=== PATIENT | female | born 1980 | race Caucasian/White ===

== ENCOUNTER 2018-03-11 19:02 | Inpatient (IN) | payer OTHER ==
--- NOTE | 2018-03-11 20:36 | OBADHP ---
Datetime: 03/11/2018 20:30 Admit Comment, IP Provider: Patient is a 38-year-old 2 para 0 estimated gestational age 39 w eeks submitted due date 03/18/2018. Patient presents to labor and delivery for induction of labor sec ondary to decreased amniotic fluid. Patient reports good movement no vaginal bleeding or leakag e of fluid. Patient's care unremarkable. Past medical history none Past surgical history none No known drug allergies Social history denies alcohol tobacco use Review of systems patient denies headache chest pain shortness breath palpitations nausea vomiting diarrhea vaginal bleeding dysuria heat or cold intolerance easy bruisability musculoskeletal or neur ological complaints Vital signs stable afebrile Physical exam see notes Intrauterine at 39 weeks oligohydramnios uterine contractions Adequate pelvis, vertex presentation, estimated weight 7-1/2-8 pounds Admit, routine labs Ripen cervix was Cervidil Plan of care was discussed with patient and partner whom agree with plan of care Pelvic Type - PN: Adequate Extremities - PN: Normal Abdomen - PN: Normal Back - PN: Normal Breast - PN: Not Done Lungs - PN: Normal Heart - PN: Normal Thyroid - PN: Normal Neurologic - PN: Normal HEENT - PN: Normal General - PN: Normal Weight - Estimated: 71/2-8 Presentation-Admit: Vertex FHR - Baseline A Provider: 145 Gestation - Est Wks by US: 39.0 Pool Provider: Negative Vital Signs Provider: Reviewed IP Chief Complaint: Uterine contractions NICHD Variability Prov Fetus A: Moderate 6-25bpm NICHD Accel Fetus A IP Provider: [id number] NICHD Decel Fetus A IP Provider: None Dilatation, Provider: 1 Effacement, Provider: 50 Station, Provider: -2 Genitourinary Exam: Normal DTRs - PN: Normal IP Adm Impression: Term, intrauterine ; No Active Labor IP Admit Plan: Admit to unit
[2018-03-11 21:03] VITALS: BMI 36.9
[2018-03-11 21:50] LABS: BASO # 0.1 K/uL (0.0-0.2); BASO % 0.6 % (0.0-2.0); EOS # 0.1 K/uL (0.0-0.7); EOS % 1.2 % (0.0-4.0); HEMOGLOBIN 12.1 g/dL (12.0-16.0); LYMPH # 2.2 K/uL (1.0-4.3); LYMPH % 25.7 % (20.0-40.0); MEAN CELL VOLUME 87.5 fl (81.0-99.0); MEAN CORPUSCULAR HEMOGLOBIN 30.6 pg (27.0-31.0); MEAN PLATELET VOLUME 8.3 fl (7.2-11.7); MONO # 0.6 K/uL (0.0-0.8); MONO % 6.8 % (0.0-10.0); NEUT # 5.5 K/uL (1.8-7.0); NEUT % 65.7 % (50.0-75.0); RBC 3.96 Mil/uL (3.80-5.20); RED CELL DISTRIBUTION WIDTH 13.4 % (11.5-14.5); WHITE BLOOD COUNT 8.4 K/uL (4.8-10.8)
[2018-03-12] MEDS: Levothyroxine 112 MCG TAB PO SCH (08:35)
[2018-03-12] MEDS ORDERED: Levothyroxine 112 MCG TAB PO SCH (09:00)
[2018-03-13] MEDS ORDERED: Oxytocin 30 units/LR 500ML 30 UNITS/500 ML BAG IV ONE (00:46)
--- NOTE | 2018-03-13 01:07 | OBPN ---
Datetime: 03/13/2018 01:06 IP Procedures: Sterile Vag Exam IP Progress Plan: Continue present management; Augmentation Vital Signs Provider: Reviewed; Within Normal Limits Dilatation, Provider: 1 Effacement, Provider: 80 Station, Provider: -1 Datetime: 03/12/2018 11:04 Contraction Comments Provider: q3-4min FHR - Baseline A Provider: 120s IP Progress Note Comment: Late entry note. Patient comfortable without complaints. Plan to give by [facility] Cytotec for cervical ripening. Discussed plan with patient all patient questions answered. NICHD Accel Fetus A IP Provider: 15X15 FHR Category Provider Fetus A: Category I NICHD Variability Prov Fetus A: Moderate 6-25bpm NICHD Decel Fetus A IP Provider: None Datetime: 03/12/2018 09:00 IP Informed Consent Obtain: Induction of Labor Gestation - Est Wks by US: 39.2 Datetime: 03/11/2018 20:30 Pool Provider: Negative Weight - Estimated: 71/2-8 Presentation-Admit: Vertex
--- NOTE | 2018-03-13 01:09 | OBPN ---
Datetime: 03/13/2018 01:06 FHR - Baseline A Provider: 120s IP Progress Note Comment: heart tracing category 1. Plan to start Pitocin augmentation. Discus sed plan with patient and all patient questions answered. NICHD Accel Fetus A IP Provider: 15X15 FHR Category Provider Fetus A: Category I NICHD Variability Prov Fetus A: Moderate 6-25bpm NICHD Decel Fetus A IP Provider: None
[2018-03-13] MEDS ORDERED: Lactated Ringer's 1,000 ML IV SCH (01:30)
[2018-03-13] MEDS: Levothyroxine 112 MCG TAB PO SCH (07:33)
[2018-03-13] MEDS ORDERED: Fentanyl/Bupivacaine HCl 250 ML EPI ONE (09:17)
--- NOTE | 2018-03-13 10:38 | OBPN ---
Datetime: 03/13/2018 09:24 IP Progress Impression: Normal progression of labor IP Informed Consent Obtain: Vaginal Delivery IP Procedures: Sterile Vag Exam IP Progress Plan: Continue present management Membranes, Provider: Ruptured Contraction Comments Provider: q 2 mins FHR - Baseline A Provider: 125 IP Progress Note Comment: Patient evaluated, uncomfterable VE=4/90/0 TER=475 mod harvey, +accels, no decels TOCO = ctxing q 2 mins A/P 1. Patient requesting epidural 2. CEFM and TOCO Vital Signs Provider: Reviewed; Within Normal Limits NICHD Accel Fetus A IP Provider: 15X15 NICHD Variability Prov Fetus A: Moderate 6-25bpm Dilatation, Provider: 4 Effacement, Provider: 90 Station, Provider: 0 NICHD Decel Fetus A IP Provider: Early
--- NOTE | 2018-03-13 19:31 | OBPN ---
Datetime: 03/13/2018 19:23 IP Progress Impression: Arrest of dilatation/descent IP Informed Consent Obtain: Section Delivery Contraction Comments Provider: q 2- 4 mins FHR - Baseline A Provider: 130 IP Progress Note Comment: Patient has been pushing without adequate progress for 4 hours. Multiple p ositions were tried, epidural and no epidural. At this point patient is an arrest of labor, advise to proceed with for delivery. Patient verablized understanding and agreed with proceeding wit h . Risks/benefits including risk of bleeding, infection, damage to surrounding organs such as bowel bladder, ureter, uterus. ANcef to be given pre-operatively. Will proceed to OR Vital Signs Provider: Reviewed; Within Normal Limits NICHD Variability Prov Fetus A: Moderate 6-25bpm Dilatation, Provider: 10 Effacement, Provider: 100 Station, Provider: 2 NICHD Decel Fetus A IP Provider: Early
[2018-03-13] MEDS ORDERED: OXYTOCIN/0.9 % NS 20 UNIT/1,000 ML BAG IV ONE (19:41)
[2018-03-13] MEDS ORDERED: ceFAZolin IV 2 gm in Dextrose 2 GM/50 ML BAG IVPB SCH (19:45)
[2018-03-13] MEDS ORDERED: Oxytocin 30 UNIT 30 UNITS/500 ML BAG IV ONE (19:47)
[2018-03-13] MEDS ORDERED: Lidocaine 2% MPF (5 ml) Inj ONE (19:56)
[2018-03-13] MEDS ORDERED: OXYTOCIN/0.9 % NS 20 UNIT/1,000 ML BAG IV SCH (20:00)
[2018-03-13] MEDS ORDERED: ePHEDrine 50 mg/ml Inj ONE (20:07)
[2018-03-13] MEDS ORDERED: Morphine 1 mg/ml preservative-free Inj(Duramorph) ONE (20:08)
[2018-03-13] MEDS ORDERED: Azithromycin 500 MG in Sodium Chloride 0.9% 250 ML IVPB STA (20:30)
[2018-03-13] MEDS ORDERED: DiphenhydrAMINE 50 mg/ml Inj IVP PRN (22:31)
[2018-03-13] MEDS ORDERED: Bisacodyl 5mg EC Tab PO PRN (23:29)
[2018-03-13] MEDS ORDERED: Oxycodone/Acetaminophen 5/325 mg Tab PO PRN ×2 (23:29)
--- NOTE | 2018-03-13 23:34 | OBDS ---
MATERNAL INFORMATION Provider Comments: Surgeon: Dr. Rose Supervisor Particleboard: Dr. Villarreal OB fellow, Dr. Juarez PGY 1 PRe-op: Arrest of second stage labor Surgery: primary Post-op: Same Findings: live male , vertex, 8lbs 6oz, 7/9, clear fluid, grossly nml tubes, ovaries, placen ta, uterus EBL: 950mL Anesthesia: Epidural by Dr. Roland ALVAREZ in: 2000mL UO: 250mL bloody Complications: none Condition: stable Pathology: cord blood, cord ph LABOR SUMMARY EDC: 03/17/2018 00:00 No. Babies in Womb: 1 Attempted: No LABOR INFORMATION Reason for Induction: Polyhydramnios Cervical Ripening Agents: Cytotec @ (Annotations: 1st dose of cytotec 50mcg given PO.) Oxytocin: N/A Group B Beta Strep: Negative Steroids Given: None Reason Steroids Not Administered: Not Applicable MEMBRANES Membranes Rupture Method: Spontaneous Rupture of Membranes: 03/13/2018 02:50 Amniotic Fluid Color: Clear Amniotic Fluid Amount: Small Amniotic Fluid Odor: Normal BABY A INFORMATION Born in Route : No : N/A PRESENTATION/POSITION BABY A Presentation: Cephalic INFORMATION BABY A Gestational Age at Delivery: 39.0 Gestational Status: Term
[2018-03-14] MEDS ORDERED: Bisacodyl 5mg EC Tab PO PRN (02:50)
[2018-03-14] MEDS ORDERED: Oxycodone/Acetaminophen 5/325 mg Tab PO PRN (02:50)
[2018-03-14] MEDS ORDERED: DiphenhydrAMINE 50 mg/ml Inj IVP PRN (02:50)
[2018-03-14] MEDS: Lactated Ringer's 1,000 ML IV SCH ×2 (03:43→11:25)
[2018-03-14] MEDS ORDERED: Simethicone 80 mg Chewtab PO SCH (04:00)
[2018-03-14] MEDS: Levothyroxine 112 MCG TAB PO SCH (06:29)
[2018-03-14 08:27] LABS: MEAN CELL VOLUME 87.7 fl (81.0-99.0); MEAN CORPUSCULAR HEMOGLOBIN 30.3 pg (27.0-31.0); MEAN CORPUSCULAR HGB CONC 34.6 g/dL (33.0-37.0); RBC 3.63 Mil/uL (3.80-5.20); RED CELL DISTRIBUTION WIDTH 13.5 % (11.5-14.5); WHITE BLOOD COUNT 15.2 K/uL (4.8-10.8)
[2018-03-14] MEDS ORDERED: Multivitamin With Minerals Tab PO SCH (09:00)
[2018-03-14] MEDS: Oxycodone/Acetaminophen 5/325 mg Tab PO PRN (11:21)
[2018-03-14] MEDS: Simethicone 80 mg Chewtab PO SCH ×4 (11:23→22:10)
[2018-03-15] MEDS: Oxycodone/Acetaminophen 5/325 mg Tab PO PRN ×2 (00:19→06:44)
[2018-03-15] MEDS: Simethicone 80 mg Chewtab PO SCH ×4 (03:19→21:26)
[2018-03-15] MEDS: Levothyroxine 112 MCG TAB PO SCH (06:44)
--- NOTE | 2018-03-15 09:02 | OBPPN ---
Datetime: 03/14/2018 08:54 PP Pain Prov: Within normal limits PP Nausea Prov: Denies PP Flatus Prov: Yes PP Breasts Prov: Normal PP Heart Prov: Normal PP Lungs Prov: Normal PP Abdomen/Uterus Prov: Normal PP Lochia Prov: Normal PP Vulva/Perineum Prov: Normal PP CVA Tenderness Prov: Normal PP Extremities Prov: Normal PP C/S Incision Prov: Normal PP Progress Prov: Normal PP Comments Phys Exam Prov: Abdomen soft, nontender, nondistended Uterus firm, below umbilicus Incision clean, dry, intact No deep calf tenderness bilaterally PP Impression Prov: Normal progression PP Plan Prov: Continue present management PP Progress Note Prov: Postoperative day #1 status post , patient recovering well Advance to regular diet Pain control Patient out of bed and ambulating Postoperative CBC Remove Douglas catheter IP PP Procedures: None Vital Signs Provider PP: Reviewed; Within Normal Limits
--- NOTE | 2018-03-15 10:55 | OBPPN ---
Datetime: 03/15/2018 10:47 PP Pain Prov: Within normal limits PP Nausea Prov: Denies PP Flatus Prov: Yes PP Breasts Prov: Normal PP Heart Prov: Normal PP Lungs Prov: Normal PP Abdomen/Uterus Prov: Normal PP Lochia Prov: Normal PP Vulva/Perineum Prov: Normal PP CVA Tenderness Prov: Normal PP Extremities Prov: Normal PP Comments Phys Exam Prov: Fundus firm under umbilicus PP Impression Prov: Normal progression PP Plan Prov: Continue present management PP Progress Note Prov: Patient denies CP, no SOB, no N/V, tolerating PO diet, ambulating/voiding wel l, mild lochia, abdominal pain tolerable with meds, +flatus, no BM A/P POD #2 1. continue postop orders 2. Motrin/prn percocet 3. Encourage ambulation/ IP PP Procedures: None Vital Signs Provider PP: Reviewed; Within Normal Limits
[2018-03-16] MEDS: Levothyroxine 112 MCG TAB PO SCH (06:36)
[2018-03-16] MEDS: Simethicone 80 mg Chewtab PO SCH ×4 (06:36→22:15)
--- NOTE | 2018-03-16 07:34 | OBPPN ---
Datetime: 03/16/2018 07:32 PP Pain Prov: Within normal limits PP Nausea Prov: Denies PP Flatus Prov: Yes PP BM Prov: Yes PP Abdomen/Uterus Prov: Normal PP Lochia Prov: Normal PP Extremities Prov: Normal PP C/S Incision Prov: Normal PP Progress Prov: Normal PP Comments Phys Exam Prov: Incision intact PP Impression Prov: Normal progression PP Plan Prov: Discharge PP Progress Note Prov: POD 3/ sp primary c/s for arrets of second stage, doing well, breast and yovany le feeding Rx 's motrin and percocet given Discharge home Vital Signs Provider PP: Reviewed; Within Normal Limits
--- NOTE | 2018-03-16 07:37 | OBDCSUM ---
Datetime: 03/16/2018 07:34 Discharged to, Provider: Home Follow up at, Provider: Dayan Disch Instr Activity: Normal activity; May Shower Disch Instr Diet: Regular Discharge Instructions, Provider: Routine instructions given Discharge Diagnosis, Provider: Term Delivered Discharge Time: 03/16/2018 07:34 Follow up in weeks, Provider: 1 week Disch Activity Restrictions: No exercising; No lifting; No driving; No sexual activity; Nothing in v agina - [place], tampons, douche
--- NOTE | 2018-03-16 08:37 | OP ---
PROCEDURE DATE: 03/13/18 PREOPERATIVE DIAGNOSES: 1. Arrest of second stage of labor. 2. Term . 3. Oligohydramnios. 4. Obesity. 5. Advanced maternal age. POSTOPERATIVE DIAGNOSES: 1. Arrest of second stage of labor. 2. Term . 3. Oligohydramnios. 4. Obesity. 5. Advanced maternal age. PROCEDURE: Primary low-transverse section. SURGEON: Jeniffer Rose MD. MANAGER UTILIZATION MANAGEMENT: Dr. Villarreal, OB Fellow and Dr. Juarez, PGY-1. FINDINGS: Live male , vertex, 8 pounds 6 ounces, 7 and 9 Apgars, clear fluid. Grossly normal tubes, ovaries, placenta and uterus. ESTIMATED BLOOD LOSS: 950 mL. ANESTHESIA: Epidural. ANESTHESIOLOGIST: Dr. Watkins. IV FLUIDS: 2000 mL URINE OUTPUT: 250 mL bloody. COMPLICATIONS: None. CONDITION: Stable. PATHOLOGY SPECIMEN: Cord blood and cord pH. INDICATION: This is a 38-year-old G1, P0 at 39 plus weeks, who was found to have oligohydramnios on an ultrasound done in the office and was advised to come to the hospital for induction. The patient advanced to fully dilated with the induction and pushed for four hours without adequate descent of the vertex presentation. The patient was advised at that point that she was in arrest of second stage of labor and to proceed with for delivery. The patient verbalized understanding and signed the informed consent. The patient was taken to OR when available. DESCRIPTION OF PROCEDURE: The patient was taken to OR. Ancef was given preoperatively. SCDs were placed bilaterally. The patient was prepped and draped in normal sterile fashion in dorsal supine position with a leftward tilt. Pfannenstiel skin incision was made with a scalpel and carried through the underlying layer of fascia with the scalpel and the Bovie. Fascia was incised in the midline, incision was extended laterally with the Bovie. We used Abdelrahman clamps to tent up the inferior aspect of this incision which we dissected off of the underlying pyramidalis muscles with the Bovie. In a similar fashion, we tented up the superior aspect of this incision, which we dissected off the underlying rectus abdominis muscles with Bovie. Muscles were bluntly at the midline. The peritoneum was entered with the Metzenbaum scissors. The incision was advanced superiorly and inferiorly with good visualization of all underlying organs. A bladder blade was inserted uterine peritoneum was identified, grasped with pickups. The bladder flap was created with the Metzenbaum scissors. The lower uterine segment was incised in the transverse fashion with the scalpel. The uterine cavity was entered. Clear fluid was noted. The was very low down in the pelvis, it took multiple times to delivery the infant in vertex presentation. The uterine incision, muscle incision, and skin incision were all expanded laterally. The delivered atraumatically in vertex presentation followed by shoulders and rest of the atraumatically. Cord was clamped and cut. was handed off to awaiting pediatric team. A segment of cord was sent down to pathology for cord pH to be obtained. Cord blood was collected. Placenta was extracted manually. Uterus exteriorized and cleared off all clots. Uterine incision was repaired with an 0 Vicryl stitch, and a second imbricating layer was done with 0 Monocryl stitch. The hysterotomy site appeared to be hemostatic. The uterus was returned to the abdomen. Gutters were cleared off all clots. The uterine incision was again reinspected and found to be hemostatic. The peritoneum was closed with a 2-0 Monocryl. The muscle edges were reapproximated with 0 Vicryl and then at the midline was reapproximated with the same stitch, the muscle overall appeared to be hemostatic. The fascia was closed with an 0-Vicryl stitch and the subcutaneous fat. Small bleeders were cauterized and it was reapproximated with plain gut suture. Sponge, lap and needle counts were correct x4. The skin was closed with 4-0 Monocryl. The patient was taken to the recovery room in stable condition. No other complications. Jeniffer Rose MD
[2018-03-16] MEDS: Lactated Ringer's 1,000 ML IV SCH (11:00)
[2018-03-17] MEDS: Simethicone 80 mg Chewtab PO SCH (04:00)
[2018-03-17] MEDS: Levothyroxine 112 MCG TAB PO SCH (06:29)
--- NOTE | 2018-03-17 09:33 | OBDCSUM ---
Datetime: 03/17/2018 09:30 Discharged to, Provider: Home Follow up at, Provider: Dayan Disch Instr Activity: Normal activity Disch Instr Diet: Regular Discharge Instructions, Provider: Routine instructions given Discharge Diagnosis, Provider: Term Delivered Follow up in weeks, Provider: 1-2w Disch Referrals: None Contraception discussed, Prov: Yes Disch Activity Restrictions: No lifting; No sexual activity; Nothing in vagina - [place], tampon s, douche
[2018-03-17 22:37] VITALS: BP 122/72; PULSE 86; RESP 20; TEMP 97.7; O2SAT 98
--- NOTE | 2018-03-17 22:59 | OBPPN ---
Datetime: 03/17/2018 09:29 PP Pain Prov: Within normal limits PP Nausea Prov: Denies PP Flatus Prov: Yes PP BM Prov: Yes PP Breasts Prov: Normal PP Heart Prov: Normal PP Lungs Prov: Normal PP Abdomen/Uterus Prov: Normal PP Lochia Prov: Normal PP Vulva/Perineum Prov: Normal PP CVA Tenderness Prov: Normal PP Extremities Prov: Normal PP C/S Incision Prov: Normal PP Progress Prov: Normal PP Impression Prov: Normal progression PP Plan Prov: Discharge PP Progress Note Prov: She feels fine; Better than yesterday. She is POD4 because her baby was kept in nursery. A: S/P C/S day 4 PLAN: Discharge home and follow up in 1-2w Vital Signs Provider PP: Reviewed; Within Normal Limits
== END 2018-03-17 18:25 | disposition home or self-care (01) | DRG 765 ==
LOC: H.EROB2 19:02 → H.L&D 21:08 → H.OB/GYN 03-14 01:30
PROVIDERS: ADMIT Obstetrics & Gynecology Gynecology; ATTEND Obstetrics & Gynecology Gynecology
PROC: 4A1HXCZ Monitoring of Products of Conception, Cardiac Rate, External Approach (ICD-10-PCS; 2018-03-11)
PROC: 10D00Z1 Extraction of Products of Conception, Low, Open Approach (ICD-10-PCS; principal; 2018-03-13)
DX: O40.3XX0 Polyhydramnios, third trimester, not applicable or unspecified (principal); O63.9 Long labor, unspecified; Z37.0 Single live birth; O99.214 Obesity complicating childbirth; Z3A.39 39 weeks gestation of pregnancy; O62.0 Primary inadequate contractions